=== PATIENT | male | born 1945 | race Caucasian/White ===

== ENCOUNTER 2022-10-24 09:45 | Emergency (ER) | payer MEDICARE, OTHER, SELFPAY ==
--- NOTE | 2022-10-24 09:45 | ED.URI ---
HPI - URI/Sore Throat General Chief Complaint: Upper Respiratory Infection Stated Complaint: Sinus Time Seen by Provider: 10/24/22 09:45 Source: patient Mode of arrival: ambulatory Limitations: no limitations History of Present Illness HPI Narrative: Mr. Bain is a 77-year-old male patient presenting to clinic today with complaints of runny nose and nasal congestion x3 days. He reports no fever or chills. Did an at-home COVID test yesterday and was negative. States that his has been treated for a sinus infection. Has a non productive cough at times. MD elicited complaint: rhinorrhea and nasal congestion Related Data Home Medications Medication Instructions Recorded Confirmed Flonase 10/24/22 hydrochlorothiazide 12.5 mg capsule mg 10/24/22 Allergies Allergy/AdvReac Type Severity Reaction Status Date / Time No Known Allergies Allergy Verified 10/24/22 09:58 Review of Systems Review of Systems: Pertinent positives per HPI. Patient denies any fever, chills, rash, headache, visual changes, dizziness, cough, shortness of breath, chest pain, palpitations, nausea, vomiting, diarrhea, constipation, abdominal pain, or any urinary issues. PMFSH Comments At the time of my signature, I reviewed and agree with the nursing past medical, surgical, social, and family history. There is no relevant family history pertinent to the patient complaint. Exam Narrative: General: Well-developed, well nourished, in no apparent distress Head: Normocephalic, atraumatic Eyes: Pupils equally round and reactive to light bilaterally, EOM intact, sclera and conjunctive clear, no discharge, lids normal Ears: TMs intact and dull, ear canals clear, no drainage, grossly hearing normal. Nose: Nares patent, clear nasal discharge, moderate inflammation, no sinus tenderness. Mouth: Oral pharynx without lesions or masses, good dentition, MMM. Neck: Supple, trachea midline, no enlargement of anterior or posterior cervical nodes, no thyroid masses or goiter palpable. Cardio: Regular rate and rhythm, s1 and s2 normal, no murmur appreciated. Resp: Clear to auscultation bilaterally, no rhonchi, rales, wheezing or rubs Course Course Emergency Course: Portions of this record may have been created with voice recognition software. Level of Care: Express Care Visit Vital Signs Vital signs: Vital Signs Temperature 36.2 C L 10/24/22 09:55 Pulse Rate 68 10/24/22 09:55 Respiratory Rate 16 10/24/22 09:55 Blood Pressure 159/116 H 10/24/22 09:55 Pulse Oximetry 100 10/24/22 09:55 Oxygen Delivery Room Air 10/24/22 09:55 Temperature 36.2 C L 10/24/22 09:58 Pulse Rate 68 10/24/22 09:58 Respiratory Rate 16 10/24/22 09:58 Blood Pressure 159/116 H 10/24/22 09:58 Pulse Oximetry 100 10/24/22 09:58 Oxygen Delivery Room Air 10/24/22 09:58 Vital signs reviewed MDM - URI/Sore Throat MDM Narrative Medical decision making narrative: At the time of visit patient is resting comfortably on the exam table. I suspect patient has URI. Prescription for prednisone was sent for the congestion and sinus pressure. Supportive measures were discussed with the patient he voiced understanding of discharge instructions agrees to treatment plan. Differential Diagnosis Differential diagnosis: Likely upper respiratory infection, otitis media, sinusitis, viral infection, bronchitis, influenza, pharyngitis and other (COVID) Discharge Plan Discharge Clinical Impression: Upper respiratory infection Patient Disposition: Home, Self-Care Condition: Stable Instructions: Antibiotic Form, Upper Respiratory Infection (ED) Additional Instructions: Take prescription medications only as prescribed-prednisone Increase fluids and stay well hydrated Tylenol/motrin for pain/fever Flonase and OTC antihistamines as directed Vicks vapor rub to open sinuses Sinus rinses for congestion Cepacol spray, cough drops, throat l
[2022-10-24 09:55] VITALS: BP 159/116; PULSE 68; RESP 16; TEMP 36.2; O2SAT 100
[2022-10-24 09:58] VITALS: BP 159/116; PULSE 68; RESP 16; TEMP 36.2; O2SAT 100
[2022-10-24 10:10] VITALS: BP 158/84; PULSE 72
== END 2022-10-24 10:10 | disposition home or self-care (01) ==
PROVIDERS: Emergency Provider Nurse Practitioner Family
DX: N39.0 Urinary tract infection, site not specified (principal)
CPT/HCPCS: 99213; G0463

== ENCOUNTER 2022-10-28 14:04 | Emergency (ER) | payer MEDICARE, OTHER, SELFPAY ==
[2022-10-28 14:14] VITALS: BP 153/82; PULSE 78; RESP 16; TEMP 36.1; O2SAT 99
--- NOTE | 2022-10-28 14:29 | ED.URI ---
HPI - URI/Sore Throat General Chief Complaint: Upper Respiratory Infection Stated Complaint: uri Time Seen by Provider: 10/28/22 14:29 Source: patient and RN notes reviewed Mode of arrival: ambulatory Limitations: no limitations History of Present Illness HPI Narrative: 77-year-old male presented for complaint of sinus pressure and congestion with cough for over 2 weeks. He endorses he has had this intermittently since the beginning of September, and was given a course of amoxicillin at that time, and completed a course of steroids today after being seen 4 days ago for the same. He is taking multiple otc meds without significant relief. Denies sob, wheezing, n/v/d/f/c. Endorses has similar symptoms. MD elicited complaint: cough Related Data Home Medications Medication Instructions Recorded Confirmed fluticasone propionate 50 1 spray intranasal DAILY 10/28/22 10/28/22 mcg/actuation nasal spray,suspension hydrochlorothiazide 12.5 mg capsule 12.5 mg DAILY 10/28/22 10/28/22 prednisone 20 mg tablet 40 mg DAILY 10/28/22 10/28/22 Allergies Allergy/AdvReac Type Severity Reaction Status Date / Time No Known Allergies Allergy Verified 10/28/22 14:10 Review of Systems Review of Systems: CONSTITUTIONAL:Denies malaise, chills, sweats, fever EYES: Denies visual changes, redness, or discharge ENT: Reports rhinorrhea, congestion, sinus pain CARDIOVASCULAR: Denies chest pain, palpitations, edema RESPIRATORY: Reports cough, post nasal drainage. Denies dyspnea GASTROINTESTINAL: Denies abdominal pain, nausea, vomiting, diarrhea SKIN: Denies rash or itching MUSCULOSKELETAL: Denies myalgia NEUROLOGIC: Denies headache Exam Narrative: GENERAL: well-appearing, nontoxic EYES: PERRLA, conjunctivae clear ENT: Mucous membranes moist. Nasal congestion. TM pearly levine with dull light reflex bilaterally; no tragal tenderness. Oropharynx erythematous without lesions or exudate NECK: Supple. No lymphadenopathy CHEST: Clear to auscultation, breath sounds equal. No wheezing, rhonchi, rales, or stridor. No respiratory distress, speaks in full sentences. HEART: Regular rate and rhythm. No murmur heard. SKIN: Warm, dry, no rash. NEURO: Alert and oriented x3. PSYCH: Normal mood and affect Course Course Emergency Course: Patient is aware of diagnosis, understands and agrees to treatment plan. Anticipatory guidance given. Patient agrees to follow-up as directed and is aware of reasons to seek care at the emergency department. Portions of this record may have been created with voice recognition software Level of Care: Express Care Visit Vital Signs Vital signs: Vital Signs Temperature 96.9 F L 10/28/22 14:14 Pulse Rate 78 10/28/22 14:14 Respiratory Rate 16 10/28/22 14:14 Blood Pressure 153/82 H 10/28/22 14:14 Pulse Oximetry 99 10/28/22 14:14 Oxygen Delivery Room Air 10/28/22 14:14 Temperature 96.9 F L 10/28/22 14:14 Pulse Rate 78 10/28/22 14:14 Respiratory Rate 16 10/28/22 14:14 Blood Pressure 153/82 H 10/28/22 14:14 Pulse Oximetry 99 10/28/22 14:14 Oxygen Delivery Room Air 10/28/22 14:14 reviewed MDM - URI/Sore Throat MDM Narrative Medical decision making narrative: Advised supportive measures and signs/symptoms to go to the ER. Pt is appropriate for outpt treatment and f/u. Differential Diagnosis Differential diagnosis: Likely upper respiratory infection, sinusitis and viral infection Discharge Plan Discharge Clinical Impression: Upper respiratory infection Qualifiers: URI type: unspecified URI Qualified Code(s): J06.9 - Acute upper respiratory infection, unspecified Patient Disposition: Home, Self-Care Condition: Stable Instructions: Antibiotic Form, Sinusitis (ED) Additional Instructions: Recommend continuing Flonase spray, saline spray and Zyrtec (or Claritin/Marcia) over the counter Cough syrup may cause drowsiness; avoid driving or take it at night time. [place]
== END 2022-10-28 14:41 | disposition home or self-care (01) ==
PROVIDERS: Emergency Provider Nurse Practitioner Family
DX: J06.9 Acute upper respiratory infection, unspecified (principal)
CPT/HCPCS: 99213; G0463

== ENCOUNTER 2025-02-22 07:26 | Outpatient (CLI) | payer MEDICARE, SELFPAY ==
--- NOTE | ~2025-02-22 | XR_ITS ---
XR knee LT min 4V Ordering provider: Dirk Hammonds, History: . L knee injury . Comparison: None. FINDINGS: BONES: No acute fracture or dislocation. JOINT SPACES: Slight narrowing of the medial compartment. SOFT TISSUES: Normal. IMPRESSION: No acute osseous abnormality left knee. Mild osteoarthritic changes. Reviewed, dictated and finalized at location A.
== END 2025-02-22 07:27 | disposition home or self-care (01) ==
PROVIDERS: PCP Family Medicine; Visit Provider Family Medicine
DX: M17.12 Unilateral primary osteoarthritis, left knee (principal)
CPT/HCPCS: 73564